=== PATIENT | female | born 1965 | race Caucasian/White ===

== ENCOUNTER 2017-06-02 12:16 | Inpatient (IN) | payer OTHER ==
[~2017-06-02] VITALS: Ht 170.2 cm; Wt 93.7 kg
[~2017-06-02 12:16] MED LIST: ACYCLOVIR400 MG PO; ATIVAN0.5 MG PO; BACTRIM,SEPT1 TABLET PO; BUSPAR5 MG PO; DEPAKOTE500 MG PO; DEXAMETHASONE2 MG PO; DEXAMETHASONE4 MG PO; KEPPRA1000 MG PO; KEPPRA500 MG PO; KEPPRA750 MG PO; LEVOTHYROXINE50 MCG PO; LEXAPRO10 MG PO; SPIRONOLACTONE50 MG PO; SYNTHROID25 MCG PO; TEMODAR 100 MG100 MG PO; TEMODAR20 MG PO; WELLBUTRIN SR150 MG PO; ZANTAC150 MG PO
[2017-06-02 13:02] VITALS: BP 127/71
[2017-06-02] MEDS ORDERED: TYLENOL REGULA325 MG PO (13:50)
[2017-06-02] MEDS ORDERED: BACITRAYCIN PLU28 G1 TP (13:51)
[2017-06-02] MEDS ORDERED: DULCOLAX10 MG PR (13:52)
[2017-06-02] MEDS ORDERED: COLACE100 MG PO (13:52)
[2017-06-02] MEDS ORDERED: LOVENOX40 MG/0.4 SC (13:53)
[2017-06-02] MEDS ORDERED: SYNTHROID50 MCG PO (13:55)
[2017-06-02] MEDS ORDERED: ROXICODONE5 MG PO (13:56)
[2017-06-02] MEDS ORDERED: SENNA8.6 MG PO (13:58)
[2017-06-02] MEDS ORDERED: FLOMAX0.4 MG PO (14:00)
[2017-06-02] MEDS ORDERED: DEPAKENE250 MG PO (14:01)
[2017-06-02 15:50] VITALS: BP 146/84
[2017-06-02 23:24] VITALS: BP 122/59
[2017-06-03 04:53] LABS: HEMATOCRIT 37.1 % (36.0-46.0); MCH 37.2 PG (29.0-34.0); MCHC 34.8 G/DL (30.0-36.0); MCV 106.9 FL (83-99); MEAN PLAT.VOLUME 9.9 uM^3 (9.5-12.4); PLATELET COUNT 74 K/uL (156-360); RBC DIS.WIDTH-CV 11.7 % (11.8-14.6); RBC DIS.WIDTH-SD 45.6 % (39-53); RED BLOOD COUNT 3.47 M/uL (3.80-5.20); WHITE BLOOD COUNT 7.2 K/uL (4.1-10.2)
[2017-06-03 05:07] LABS: CHLORIDE 104 mEq/L (99-109); POTASSIUM 4.3 mEq/L (3.7-5.4); SODIUM 137 mEq/L (136-147)
[2017-06-03 05:09] LABS: GLUCOSE 98 mg/dL (70-99)
[2017-06-03 05:10] LABS: ANION GAP 5 MEQ/L (2-14)
[2017-06-03 05:11] LABS: TOTAL BILIRUBIN 0.4 mg/dL (0.0-1.0)
[2017-06-03 05:12] LABS: ALKALINE PHOSPHATASE 60 IU/L (3-129)
[2017-06-03 05:13] LABS: GFR ESTIMATE (CALCULATED) > 59 mL/min/
[2017-06-03 05:14] LABS: UREA NITROGEN (BUN) 32 mg/dL (9-23)
[2017-06-03 05:28] VITALS: BP 109/64
[2017-06-03 16:23] VITALS: BP 118/71
[2017-06-04 05:13] VITALS: BP 115/76
[2017-06-04 09:25] LABS: ADD MIUA? YES; BILIRUBIN NEGATIVE; BLOOD NEGATIVE; COLOR YELLOW ((YELLOW)); GLUCOSE (STRIP) >=500; KETONES NEGATIVE; LEUKOCYTES NEGATIVE; NITRITE POSITIVE; PROTEIN (STRIP) NEGATIVE; SPECIFIC GRAVITY 1.024 (1.000-1.030)
[2017-06-04 09:36] LABS: BACTERIA RARE /HPF; EPITHELIAL CELLS RARE /HPF; MUCUS 4+ /LPF; RED BLOOD CELLS 0-5 /HPF (0-5)
[2017-06-04 15:34] VITALS: BP 130/78
[2017-06-05 05:13] VITALS: BP 119/57
[2017-06-05 06:07] LABS: HEMATOCRIT 35.5 % (36.0-46.0); MCH 36.9 PG (29.0-34.0); MCHC 34.1 G/DL (30.0-36.0); MCV 108.2 FL (83-99); MEAN PLAT.VOLUME 10.8 uM^3 (9.5-12.4); PLATELET COUNT 68 K/uL (156-360); RBC DIS.WIDTH-CV 11.9 % (11.8-14.6); RBC DIS.WIDTH-SD 46.4 % (39-53); RED BLOOD COUNT 3.28 M/uL (3.80-5.20); WHITE BLOOD COUNT 4.7 K/uL (4.1-10.2)
[2017-06-05 06:40] LABS: ANION GAP 3 MEQ/L (2-14); CHLORIDE 102 MEQ/L (99-109); GFR ESTIMATE (CALCULATED) > 59 mL/min/; GLUCOSE 103 mg/dL (70-99); POTASSIUM 3.9 MEQ/L (3.7-5.4); SAMPLE HEMOLYSIS CHECK 0; SAMPLE ICTERIC CHECK 0; SAMPLE LIPEMIA CHECK 0; SODIUM 135 MEQ/L (136-147); UREA NITROGEN (BUN) 18 mg/dL (9-23)
[2017-06-05 15:33] VITALS: BP 106/65
[2017-06-06 04:37] VITALS: BP 100/59
[2017-06-06 15:00] VITALS: BP 107/68
[2017-06-07 06:24] VITALS: BP 109/79
[2017-06-07 15:09] VITALS: BP 101/55
[2017-06-08 05:48] VITALS: BP 95/50
[2017-06-08 15:57] VITALS: BP 139/68
[2017-06-09 04:31] VITALS: BP 98/66
[2017-06-09 08:15] VITALS: BP 118/73
[2017-06-09 16:22] VITALS: BP 110/61
[2017-06-10 04:37] VITALS: BP 98/65
[2017-06-10 17:26] VITALS: BP 123/76
[2017-06-11 04:49] VITALS: BP 92/55
[2017-06-11 06:46] LABS: HEMATOCRIT 32.4 % (36.0-46.0); MCH 37.1 PG (29.0-34.0); MCHC 32.7 G/DL (30.0-36.0); MEAN PLAT.VOLUME 9.9 uM^3 (9.5-12.4); NRBC (%) 0.5 /100 WBC (0-0); RBC DIS.WIDTH-CV 13.5 % (11.8-14.6); RBC DIS.WIDTH-SD 54.7 % (39-53); RED BLOOD COUNT 2.86 M/uL (3.80-5.20); WHITE BLOOD COUNT 5.9 K/uL (4.1-10.2)
[2017-06-11 06:53] LABS: MCV 113.3 FL (83-99); PLATELET COUNT 129 K/uL (156-360)
[2017-06-11 06:56] LABS: ANION GAP 2 MEQ/L (2-14); CHLORIDE 107 MEQ/L (99-109); GFR ESTIMATE (CALCULATED) > 59 mL/min/; GLUCOSE 79 mg/dL (70-99); POTASSIUM 4.6 MEQ/L (3.7-5.4); SAMPLE HEMOLYSIS CHECK 0; SAMPLE ICTERIC CHECK 0; SAMPLE LIPEMIA CHECK 0; SODIUM 140 MEQ/L (136-147); UREA NITROGEN (BUN) 16 mg/dL (9-23)
[2017-06-11 15:55] VITALS: BP 101/62
[2017-06-12 04:24] VITALS: BP 121/60
[2017-06-12 05:33] LABS: EOSINOPHIL (%) 1.3 % (0-5); EOSINOPHIL COUNT 0.1 K/uL (0-0.3); IMMATURE GRANULOCYTE (%) 1.8 % (0.0-0.7); IMMATURE GRANULOCYTE COUNT 0.1 K/uL; INSTRUMENT ABS NEUTROPHIL CT 3.4 K/uL; LYMPHOCYTE COUNT 0.6 K/uL (1.0-2.8); MCH 37.1 PG (29.0-34.0); MCHC 32.7 G/DL (30.0-36.0); MCV 113.4 FL (83-99); MEAN PLAT.VOLUME 9.6 uM^3 (9.5-12.4); MONOCYTE (%) 9.7 % (3-12); MONOCYTE COUNT 0.4 K/uL (0-0.8); NEUTROPHIL (%) 74.2 % (45-76); NEUTROPHIL COUNT 3.4 K/uL (1.8-6.4); NRBC (%) 0.4 /100 WBC (0-0); PLATELET COUNT 128 K/uL (156-360); RBC DIS.WIDTH-CV 13.7 % (11.8-14.6); RBC DIS.WIDTH-SD 55.8 % (39-53); RED BLOOD COUNT 2.91 M/uL (3.80-5.20); WHITE BLOOD COUNT 4.5 K/uL (4.1-10.2)
[2017-06-12 06:13] LABS: ALKALINE PHOSPHATASE 56 IU/L (3-129); ANION GAP 5 MEQ/L (2-14); CHLORIDE 107 MEQ/L (99-109); GFR ESTIMATE (CALCULATED) > 59 mL/min/; GLUCOSE 70 mg/dL (70-99); POTASSIUM 4.3 MEQ/L (3.7-5.4); SAMPLE HEMOLYSIS CHECK 0; SAMPLE ICTERIC CHECK 0; SAMPLE LIPEMIA CHECK 0; SODIUM 143 MEQ/L (136-147); TOTAL BILIRUBIN 0.3 MG/DL (0.0-1.0); UREA NITROGEN (BUN) 15 mg/dL (9-23)
[2017-06-12 15:39] VITALS: BP 83/41
[2017-06-13 05:34] VITALS: BP 128/68
[2017-06-13 15:56] VITALS: BP 107/56
[2017-06-14 06:10] VITALS: BP 107/62
[2017-06-14 15:00] VITALS: BP 123/70
[2017-06-15 05:46] VITALS: BP 108/56
[2017-06-15 15:15] VITALS: BP 135/80
[2017-06-16 05:28] VITALS: BP 104/58
[2017-06-16 15:29] VITALS: BP 116/69
[2017-06-17 05:33] VITALS: BP 101/60
[2017-06-17 15:52] VITALS: BP 109/71
[2017-06-18 05:26] VITALS: BP 112/58
[2017-06-18 07:56] LABS: EOSINOPHIL (%) 1.7 % (0-5); EOSINOPHIL COUNT 0.1 K/uL (0-0.3); HEMATOCRIT 37.2 % (36.0-46.0); IMMATURE GRANULOCYTE (%) 0.7 % (0.0-0.7); INSTRUMENT ABS NEUTROPHIL CT 1.9 K/uL; LYMPHOCYTE COUNT 0.7 K/uL (1.0-2.8); MCH 37.3 PG (29.0-34.0); MCHC 33.1 G/DL (30.0-36.0); MCV 112.7 FL (83-99); MEAN PLAT.VOLUME 9.3 uM^3 (9.5-12.4); MONOCYTE (%) 10.6 % (3-12); MONOCYTE COUNT 0.3 K/uL (0-0.8); NEUTROPHIL (%) 62.4 % (45-76); NEUTROPHIL COUNT 1.9 K/uL (1.8-6.4); PLATELET COUNT 123 K/uL (156-360); RBC DIS.WIDTH-CV 13.2 % (11.8-14.6); RBC DIS.WIDTH-SD 55.8 % (39-53)
[2017-06-18 08:33] LABS: ALKALINE PHOSPHATASE 77 IU/L (3-129); ANION GAP 8 MEQ/L (2-14); CHLORIDE 104 MEQ/L (99-109); GFR ESTIMATE (CALCULATED) > 59 mL/min/; GLUCOSE 78 mg/dL (70-99); POTASSIUM 4.1 MEQ/L (3.7-5.4); SAMPLE HEMOLYSIS CHECK 0; SAMPLE ICTERIC CHECK 0; SAMPLE LIPEMIA CHECK 0; SODIUM 142 MEQ/L (136-147); UREA NITROGEN (BUN) 16 mg/dL (9-23)
[2017-06-18 08:35] LABS: TOTAL BILIRUBIN 0.5 MG/DL (0.0-1.0)
[2017-06-18 15:11] VITALS: BP 110/68
[2017-06-19 05:16] VITALS: BP 95/54
[2017-06-19 15:11] VITALS: BP 116/79
[2017-06-20 05:20] VITALS: BP 107/65
[2017-06-20 07:12] LABS: EOSINOPHIL (%) 2.2 % (0-5); EOSINOPHIL COUNT 0.1 K/uL (0-0.3); HEMATOCRIT 33.7 % (36.0-46.0); IMMATURE GRANULOCYTE (%) 0.6 % (0.0-0.7); INSTRUMENT ABS NEUTROPHIL CT 2.1 K/uL; LYMPHOCYTE COUNT 0.7 K/uL (1.0-2.8); MCH 38.8 PG (29.0-34.0); MCHC 34.4 G/DL (30.0-36.0); MCV 112.7 FL (83-99); MEAN PLAT.VOLUME 9.2 uM^3 (9.5-12.4); MONOCYTE (%) 10.4 % (3-12); MONOCYTE COUNT 0.3 K/uL (0-0.8); NEUTROPHIL (%) 65.7 % (45-76); NEUTROPHIL COUNT 2.1 K/uL (1.8-6.4); PLATELET COUNT 115 K/uL (156-360); RBC DIS.WIDTH-CV 13.3 % (11.8-14.6); RBC DIS.WIDTH-SD 54.9 % (39-53); RED BLOOD COUNT 2.99 M/uL (3.80-5.20); WHITE BLOOD COUNT 3.2 K/uL (4.1-10.2)
[2017-06-20] MEDS ORDERED: DIVALPROEX SOD500 MG PO (12:49)
[2017-06-20] MEDS ORDERED: FUROSEMIDE40 MG PO (12:49)
[2017-06-20] MEDS ORDERED: THERAGRAN1 TABLET PO (12:49)
[2017-06-20] MEDS ORDERED: FLOMAX0.4 MG PO (12:49)
== END 2017-06-20 14:56 | DRG 945 ==
LOC: 3WEST 12:16 → ENPENDDIS 06-22
PROVIDERS: Physical Medicine & Rehabilitation Pain Medicine; Psychiatry & Neurology Neurology; Urology
PROC: F07M7ZZ Manual Therapy Techniques Treatment of Musculoskeletal System - Whole Body (ICD-10-PCS; principal; 2017-06-02)
DX: R53.1 Weakness (principal); R47.01 Aphasia; R13.10 Dysphagia, unspecified; C71.1 Malignant neoplasm of frontal lobe; R32 Unspecified urinary incontinence; M19.90 Unspecified osteoarthritis, unspecified site; F32.9 Major depressive disorder, single episode, unspecified; E66.9 Obesity, unspecified; I10 Essential (primary) hypertension; N39.0 Urinary tract infection, site not specified; G40.909 Epilepsy, unspecified, not intractable, without status epilepticus; G45.9 Transient cerebral ischemic attack, unspecified; G81.91 Hemiplegia, unspecified affecting right dominant side; Z16.29 Resistance to other single specified antibiotic; Z16.11 Resistance to penicillins; E03.9 Hypothyroidism, unspecified; G47.30 Sleep apnea, unspecified; D69.6 Thrombocytopenia, unspecified; D64.9 Anemia, unspecified; E87.1 Hypo-osmolality and hyponatremia; E73.9 Lactose intolerance, unspecified; B96.20 Unspecified Escherichia coli [E. coli] as the cause of diseases classified elsewhere; Z87.440 Personal history of urinary (tract) infections; Z92.3 Personal history of irradiation; H26.9 Unspecified cataract; Z92.21 Personal history of antineoplastic chemotherapy; Z68.35 Body mass index [BMI] 35.0-35.9, adult
CPT/HCPCS: 70551; 80048; 80053; 80164; 81003; 82140; 85025; 85027; 87077; 87086; 87186; 92507 GN; 92523 GN; 92526 GN; 92610 GN; 93970; 97110 GO; 97112 GP; 97530 GP; 97532 GN; J0692; J1650; J7050

== ENCOUNTER 2017-07-19 14:39 | Observation (INO) | payer OTHER ==
[~2017-07-19] VITALS: Ht 170.2 cm; Wt 86.3 kg
[~2017-07-19 14:39] MED LIST changes: +BACITRAYCIN PLU28 G1 TP; +COLACE100 MG PO; +DEPAKENE250 MG PO; +DIVALPROEX SOD500 MG PO; +DULCOLAX10 MG PR; +FLOMAX0.4 MG PO; +FUROSEMIDE40 MG PO; +LOVENOX40 MG/0.4 SC; +ROXICODONE5 MG PO; +SENNA8.6 MG PO; +SYNTHROID50 MCG PO; +THERAGRAN1 TABLET PO; +TYLENOL REGULA325 MG PO
[2017-07-19 15:10] LABS: EOSINOPHIL (%) 0.1 % (0-5); HEMATOCRIT 44.5 % (36.0-46.0); IMMATURE GRANULOCYTE (%) 0.7 % (0.0-0.7); IMMATURE GRANULOCYTE COUNT 0.1 K/uL; INSTRUMENT ABS NEUTROPHIL CT 5.6 K/uL; LYMPHOCYTE COUNT 0.8 K/uL (1.0-2.8); MCH 36.4 PG (29.0-34.0); MCHC 33.9 G/DL (30.0-36.0); MEAN PLAT.VOLUME 10.8 uM^3 (9.5-12.4); MONOCYTE (%) 8.5 % (3-12); MONOCYTE COUNT 0.6 K/uL (0-0.8); NEUTROPHIL (%) 79.6 % (45-76); NEUTROPHIL COUNT 5.6 K/uL (1.8-6.4); PLATELET COUNT 140 K/uL (156-360); RBC DIS.WIDTH-CV 11.2 % (11.8-14.6); RBC DIS.WIDTH-SD 44.5 % (39-53); WHITE BLOOD COUNT 7.1 K/uL (4.1-10.2)
[2017-07-19 15:11] LABS: MCV 107.2 FL (83-99); PROTHROMBIN TIME 11.4 SEC (10.2-12.9); RED BLOOD COUNT 4.15 M/uL (3.80-5.20)
[2017-07-19 15:14] LABS: AMYLASE 52 IU/L (1-118); CHLORIDE 98 mEq/L (99-109); POTASSIUM 4.8 mEq/L (3.7-5.4); PTT 30.9 SEC (25-37); SODIUM 137 mEq/L (136-147)
[2017-07-19 15:15] LABS: POINT-OF-CARE METER ID UU13113747; POINT-OF-CARE USER ID 608261302
[2017-07-19 15:16] LABS: GLUCOSE 84 mg/dL (70-99)
[2017-07-19 15:18] LABS: ANION GAP 14 MEQ/L (2-14)
[2017-07-19 15:19] LABS: SERUM ETHYL ALCOHOL < 10 mg/dL
[2017-07-19 15:20] LABS: GFR ESTIMATE (CALCULATED) > 59 mL/min/
[2017-07-19 15:21] LABS: UREA NITROGEN (BUN) 13 mg/dL (9-23)
[2017-07-19 15:23] LABS: LIPASE 35 U/L (1.0-51.0)
[2017-07-19 15:26] LABS: TROP-I INTERPRETATION NEGATIVE; TROPONIN-I < 0.01 ng/mL (0.0-0.30)
[2017-07-19 15:32] LABS: QUANTITATIVE HCG 6.4 MIU/ML
[2017-07-19 16:44] LABS: ADD MIUA? YES; BILIRUBIN NEGATIVE; BLOOD NEGATIVE; COLOR STRAW ((YELLOW)); GLUCOSE (STRIP) NEGATIVE; KETONES NEGATIVE; LEUKOCYTES SMALL; NITRITE NEGATIVE; PROTEIN (STRIP) NEGATIVE; SPECIFIC GRAVITY 1.006 (1.000-1.030); UROBILINOGEN 0.2 MG/DL (0.2-1.0)
[2017-07-19 16:49] LABS: BACTERIA RARE /HPF; EPITHELIAL CELLS RARE /HPF; HYALINE CASTS 0-5 /LPF; MUCUS NONE SEEN /LPF; RED BLOOD CELLS 0-5 /HPF (0-5); UCUL ADDED? NO; WHITE BLOOD CELLS 0-5 /HPF (0-5)
[2017-07-19 20:32] LABS: AMPHETAMINE NEGATIVE (500 ng/mL); BARBITURATES NEGATIVE (200 ng/mL); BENZODIAZEPINES NEGATIVE (150 ng/mL); COCAINE NEGATIVE (150 ng/mL); INTERNAL CONTROLS VALID? YES; METHADONE NEGATIVE (200 ng/mL); METHAMPHETAMINE NEGATIVE (500 ng/mL); OPIATES (MORPHINE) NEGATIVE (100 ng/mL); OXYCODONE NEGATIVE (100 ng/mL); PHENCYCLIDINE NEGATIVE (25 ng/mL); PROPOXYPHENE NEGATIVE (300 ng/mL); THC CANNABINOIDS NEGATIVE (50 ng/mL); TRICYCLIC ANTIDEPRESSANTS NEGATIVE (300 ng/mL)
[2017-07-19] MEDS ORDERED: LEVETIRACETAM500 MG PO (20:41)
[2017-07-19] MEDS ORDERED: ONDANSETRON HCL8 MG PO (20:46)
[2017-07-19 21:30] VITALS: BP 132/65
[2017-07-19 23:55] VITALS: BP 101/58
[2017-07-20 04:09] VITALS: BP 110/65
[2017-07-20 05:49] LABS: HEMATOCRIT 41.1 % (36.0-46.0); MCH 37.2 PG (29.0-34.0); MCHC 35.5 G/DL (30.0-36.0); MCV 104.8 FL (83-99); MEAN PLAT.VOLUME 11.1 uM^3 (9.5-12.4); PLATELET COUNT 141 K/uL (156-360); RBC DIS.WIDTH-CV 10.9 % (11.8-14.6); RBC DIS.WIDTH-SD 42.1 % (39-53); RED BLOOD COUNT 3.92 M/uL (3.80-5.20); WHITE BLOOD COUNT 4.9 K/uL (4.1-10.2)
[2017-07-20 06:14] LABS: ANION GAP 10 MEQ/L (2-14); CHLORIDE 98 MEQ/L (99-109); GFR ESTIMATE (CALCULATED) > 59 mL/min/; POTASSIUM 4.6 MEQ/L (3.7-5.4); SAMPLE HEMOLYSIS CHECK 0; SAMPLE ICTERIC CHECK 0; SAMPLE LIPEMIA CHECK 0; SODIUM 135 MEQ/L (136-147); UREA NITROGEN (BUN) 12 mg/dL (9-23)
[2017-07-20 06:16] LABS: GLUCOSE 140 mg/dL (70-99)
[2017-07-20 08:24] VITALS: BP 103/62
[2017-07-20] MEDS ORDERED: TAMSULOSIN HCL0.4 MG PO (11:37)
[2017-07-20] MEDS ORDERED: DELTASONE20 M1 PO (11:48)
[2017-07-20 12:43] VITALS: BP 112/60
== END 2017-07-20 16:28 | disposition home or self-care (01) ==
LOC: EME 14:39 → 5WEST 16:14 → EDOF 16:14 → ENRESERV 16:21 → 5WEST 21:17
PROVIDERS: Emergency Medicine; Internal Medicine
DX: C71.9 Malignant neoplasm of brain, unspecified (principal); R56.9 Unspecified convulsions; I10 Essential (primary) hypertension; R47.01 Aphasia; G93.6 Cerebral edema; M19.90 Unspecified osteoarthritis, unspecified site; F32.9 Major depressive disorder, single episode, unspecified; E66.9 Obesity, unspecified; Z68.29 Body mass index [BMI] 29.0-29.9, adult; J45.909 Unspecified asthma, uncomplicated; Z87.440 Personal history of urinary (tract) infections; E03.9 Hypothyroidism, unspecified; Z92.21 Personal history of antineoplastic chemotherapy
CPT/HCPCS: 70450; 70551; 71010; 80048; 81003; 82150; 82948; 83690; 84484; 84702; 85025; 85027; 85610; 85730; 86850; 86900; 86901; 93005; 99281; 99285; G0378; G0480; G8978 GP CI; G8979 GP CH; G8980 GP CI; G8987 GO CI; G8988 GO CH; G8989 GO CI; J1100; J1200; J1644; J1885; J2405; J2765